=== PATIENT | male | born 1990 ===

== ENCOUNTER 2019-11-08 12:03 | Emergency (ER) | payer OTHER ==
[~2019-11-08] VITALS: Ht 180.3 cm; Wt 94.3 kg
== END 2019-11-08 17:31 | disposition home or self-care (01) ==
LOC: ER 12:03
DX: N20.1 Calculus of ureter (principal)

== ENCOUNTER 2019-11-26 12:11 | Emergency (ER) | payer OTHER ==
[~2019-11-26] VITALS: Ht 180.3 cm; Wt 91.2 kg
[2019-11-26] MEDS ORDERED: ZITHROMAX500 MG PO (15:27)
[2019-11-26] MEDS ORDERED: TUSSIN DM LIQU118 ML PO (15:27)
== END 2019-11-26 16:16 | disposition home or self-care (01) ==
LOC: ER 12:11
DX: B34.9 Viral infection, unspecified (principal); B96.0 Mycoplasma pneumoniae [M. pneumoniae] as the cause of diseases classified elsewhere

== ENCOUNTER 2019-12-28 09:35 | Outpatient (CLI) | payer OTHER ==
[~2019-12-28 09:35] MED LIST: TUSSIN DM LIQU118 ML PO; ZITHROMAX500 MG PO
== END 2019-12-28 09:43 | disposition home or self-care (01) ==
LOC: RAD 09:35
PROVIDERS: ATTEND Urology
DX: N20.1 Calculus of ureter (principal)